=== PATIENT | female | born 1985 | race African-American/Black ===

== ENCOUNTER 2018-02-27 04:49 | Emergency (ER) | payer BC ==
[~2018-02-27] VITALS: Ht 170.2 cm; Wt 81.7 kg
[~2018-02-27 04:49] MED LIST: AZITHROMYCIN 2250 MG PO; CYMBALTA20 MG; ELMIRON; EXCEDRIN CAPLE1 EACH; FIORICET 50-321 EACH PO; FIORICET PO; PHENERGAN 25 MG25 M1 PO; TOPAMAX25 M1; TRAMADOL 50 MG50 MG PO; ULTRAM 50MG TAB50 MG PO; ZANAFLEX2 MG PO; ZANTAC 150MG T150 M1; ZOLOFT; [UNRECOGNIZED DRUG - OTHER]
[2018-02-27 05:07] LABS: URINE BILIRUBIN NEGATIVE (Negative); URINE BLOOD 1+ (Negative); URINE CLARITY CLEAR; URINE COLOR YELLOW; URINE GLUCOSE-RANDOM* NEGATIVE (Negative); URINE KETONES NEGATIVE (Negative); URINE LEUKOCYTES-REFLEX NEGATIVE (Negative); URINE NITRITE-REFLEX NEGATIVE (Negative); URINE PROTEIN (DIPSTICK) NEGATIVE (Negative); URINE SPECIFIC GRAVITY 1.025 (1.005-1.035)
[2018-02-27 05:14] LABS: MUCUS 0-3 Light strn/LPF (None Seen); SQUAMOUS >10 Many /LPF (0-3)
[2018-02-27 05:15] LABS: BACTERIA-REFLEX >30 Many /HPF (None Seen); CASTS None Seen /LPF (None Seen); CRYSTALS None Seen /LPF (None Seen); URINE RBC 3-10 Few /HPF (0-2); URINE WBC-REFLEX 0-5 Rare /HPF (0-5)
[2018-02-27 05:37] LABS: CALCIUM 9.2 mg/dL (8.5-10.1); CREATININE 0.8 mg/dL (0.6-1.0); POTASSIUM 3.8 mmol/L (3.5-5.1)
[2018-02-27 05:39] LABS: ABSOLUTE NEUTROPHILS 5.8 thou/uL (1.4-8.2); BASOPHILS 0.7 % (0.0-2.0); EOSINOPHILS 1.3 % (0.0-3.0); HEMATOCRIT 37.7 % (37.0-47.0); HEMOGLOBIN 11.6 gm/dL (12.0-15.0); MCH 26.5 pg (26.0-34.0); MCHC 30.8 g/dL (28.0-37.0); MCV 85.9 fL (80.0-100.0); MONOCYTES 5.6 % (1.0-8.0); PLATELET COUNT 313 thou/uL (150-400); POLYS 63.4 % (36.0-66.0); RBC 4.39 mil/uL (4.20-5.00); RDW 15.9 % (10.5-14.5); WBC 9.2 thou/uL (4.0-11.0)
[2018-02-27] MEDS ORDERED: MOBIC15 MG PO (06:25)
[2018-02-27] MEDS ORDERED: ZOFRAN ODT4 MG PO (06:25)
[2018-02-27 06:38] VITALS: BP 94/59
[2018-02-28 14:11] LABS: NEISSERIA GONORRHEA-PCR Negative (Negative)
== END 2018-02-27 06:39 | disposition home or self-care (01) ==
LOC: ER 04:49
PROVIDERS: Emergency Medicine
DX: Z11.3 Encounter for screening for infections with a predominantly sexual mode of transmission (principal); R30.0 Dysuria; R10.31 Right lower quadrant pain; R10.32 Left lower quadrant pain; R39.11 Hesitancy of micturition; R35.0 Frequency of micturition; R11.0 Nausea; N89.8 Other specified noninflammatory disorders of vagina; G43.909 Migraine, unspecified, not intractable, without status migrainosus; K21.9 Gastro-esophageal reflux disease without esophagitis

== ENCOUNTER 2018-09-19 12:08 | Emergency (ER) | payer BC ==
[~2018-09-19] VITALS: Ht 167.6 cm; Wt 80.3 kg
[~2018-09-19 12:08] MED LIST changes: +MOBIC15 MG PO; +ZOFRAN ODT4 MG PO
[2018-09-19 13:13] LABS: URINE BILIRUBIN NEGATIVE (Negative); URINE BLOOD TRACE (Negative); URINE CLARITY CLEAR; URINE COLOR YELLOW; URINE GLUCOSE-RANDOM* NEGATIVE (Negative); URINE KETONES NEGATIVE (Negative); URINE LEUKOCYTES-REFLEX NEGATIVE (Negative); URINE NITRITE-REFLEX NEGATIVE (Negative); URINE PROTEIN (DIPSTICK) NEGATIVE (Negative); URINE UROBILINOGEN 0.2 E.U./dl (0.2-1.0)
[2018-09-19 13:22] LABS: ABSOLUTE NEUTROPHILS 13.9 thou/uL (1.4-8.2); BASOPHILS 0.7 % (0.0-2.0); HEMOGLOBIN 12.9 gm/dL (12.0-15.0); LYMPHOCYTES 4.2 % (24.0-44.0); MCH 26.5 pg (26.0-34.0); MCHC 31.4 g/dL (28.0-37.0); MCV 84.4 fL (80.0-100.0); MONOCYTES 6.3 % (1.0-8.0); PLATELET COUNT 320 thou/uL (150-400); POLYS 88.8 % (36.0-66.0); RBC 4.86 mil/uL (4.20-5.00); RDW 18.1 % (10.5-14.5); WBC 15.7 thou/uL (4.0-11.0)
[2018-09-19 13:30] LABS: CALCIUM 10.1 mg/dL (8.5-10.1); POTASSIUM 3.9 mmol/L (3.5-5.1)
[2018-09-19 13:36] LABS: TOTAL BILIRUBIN 0.4 mg/dL (<0.1-1.0); TOTAL PROTEIN 8.4 g/dL (6.4-8.2)
[2018-09-19 13:50] LABS: ANISOCYTOSIS 1+; POLYCHROMASIA OCCASIONAL
[2018-09-19 15:31] VITALS: BP 108/65
[2018-09-19] MEDS ORDERED: ZOFRAN ODT4 MG PO (15:31)
== END 2018-09-19 15:49 | disposition home or self-care (01) ==
LOC: ER 12:08
PROVIDERS: Emergency Medicine
DX: G43.909 Migraine, unspecified, not intractable, without status migrainosus (principal); R11.2 Nausea with vomiting, unspecified; R10.10 Upper abdominal pain, unspecified; K21.9 Gastro-esophageal reflux disease without esophagitis

== ENCOUNTER 2019-09-07 15:39 | Emergency (ER) | payer BC ==
[~2019-09-07] VITALS: Ht 167.6 cm; Wt 82.6 kg
[2019-09-07] MEDS ORDERED: PROTONIX40 M3 PO (17:14)
[2019-09-07] MEDS ORDERED: SERTRALINE HCL100 MG PO (17:14)
[2019-09-07] MEDS ORDERED: NORFLEX100 MG PO (17:39)
[2019-09-07] MEDS ORDERED: NAPROSYN500 MG PO (17:39)
[2019-09-07 17:52] VITALS: BP 123/76
== END 2019-09-07 18:04 | disposition home or self-care (01) ==
LOC: ER 15:39
DX: S83.8X2A Sprain of other specified parts of left knee, initial encounter (principal); S39.012A Strain of muscle, fascia and tendon of lower back, initial encounter; S29.012A Strain of muscle and tendon of back wall of thorax, initial encounter; S20.02XA Contusion of left breast, initial encounter; S10.91XA Abrasion of unspecified part of neck, initial encounter; G43.909 Migraine, unspecified, not intractable, without status migrainosus; K21.9 Gastro-esophageal reflux disease without esophagitis; Z88.5 Allergy status to narcotic agent; Z79.899 Other long term (current) drug therapy; V49.88XA Car occupant (driver) (passenger) injured in other specified transport accidents, initial encounter; Y93.89 Activity, other specified; Y92.413 State road as the place of occurrence of the external cause; Y99.9 Unspecified external cause status